=== PATIENT | female | born 1980 | race Caucasian/White ===

== ENCOUNTER 2020-02-13 12:34 | Outpatient (REF) | payer BC, SELFPAY | END 2020-02-13 12:35 | disposition home or self-care (01) | LOC: HO.LAB 12:34 | PROVIDERS: PCP Internal Medicine; Visit Provider Internal Medicine | DX: Z20.828 Contact with and (suspected) exposure to other viral communicable diseases (principal) | CPT/HCPCS: C9803; U0003 ==

== ENCOUNTER 2021-06-25 11:24 | Emergency (ER) | payer BC, SELFPAY ==
[2021-06-25 11:28] VITALS: BP 147/99; PULSE 93; RESP 18; TEMP 36.6; O2SAT 98; BMI 46.3
[2021-06-25 11:58] LABS: IDNOW Serial# 16C4AD1C; Influenza A Negative (Negative); Influenza B2 Negative (Negative)
[2021-06-25 11:59] LABS: COVID-19 Test Negative (Negative)
== END 2021-06-26 05:00 | disposition left against medical advice (07) ==
PROVIDERS: Emergency Provider Emergency Medicine
DX: R06.00 Dyspnea, unspecified (principal); R42 Dizziness and giddiness; R07.9 Chest pain, unspecified; Z20.822 Contact with and (suspected) exposure to COVID-19
CPT/HCPCS: 87502; 87635; 99283

== ENCOUNTER 2022-01-20 14:49 | Emergency (ER) | payer BC, OTHER, SELFPAY ==
--- NOTE | ~2022-01-20 | XR_ITS ---
EXAMINATION: XR CHEST CLINICAL INFORMATION: Cough, difficulty breathing. COMPARISON: Chest radiograph dated 05/15/2021 TECHNIQUE: 2 views of the chest were obtained. FINDINGS: No significant abnormality is noted involving the heart, lungs, mediastinum, bony thorax or soft tissues. XR/XR chest 2V IMPRESSION: No acute cardiopulmonary process.
[2022-01-20 15:22] VITALS: BP 109/52; PULSE 86; RESP 20; TEMP 36.6; O2SAT 98; BMI 42.9
--- NOTE | 2022-01-20 15:23 | ED.URI ---
HPI - URI/Sore Throat General Chief Complaint: Upper Respiratory Symptoms <Judith Gray NP - Last Filed: 01/20/22 15:25> Stated Complaint: COVID+/Difficult breathing <Judith Gray NP - Last Filed: 01/20/22 15:25> Time Seen by Provider: 01/20/22 17:17 <Judith Gray NP - Last Filed: 01/20/22 15:25> Source: patient <ANAT Reyes - Last Filed: 01/20/22 17:33> Mode of arrival: ambulatory <ANAT Reyes Last Filed: 01/20/22 17:33> Limitations: no limitations <ANAT Reyes Last Filed: 01/20/22 17:33> History of Present Illness HPI Narrative: 41-year-old female with a past medical history of fibromyalgia, diabetes and asthma who is presenting to the ER with complaints of URI complaints since yesterday which include fevers up to 103.0, chills, fatigue, malaise, intermittent headaches, nasal congestion/ rhinorrhea, sore throat with a cough. She denies any dizziness, neck pain/ stiffness, trouble swallowing or breathing, chest pain, shortness of breath, dyspnea on exertion, orthopnea, palpitations, paresthesias, nausea/ vomiting / diarrhea constipation, black or bloody stools, abdominal pain, flank pain, dysuria, hematuria, abnormal vaginal discharge, lower extremity edema or calf tenderness, recent travel or sick contacts, rashes or any other symptoms complaints or concerns at this time. <ANAT Reyes - Last Filed: 01/20/22 17:33> MD elicited complaint: fever, cough, sore throat, rhinorrhea and nasal congestion <ANAT Reyes Last Filed: 01/20/22 17:33> Onset (ago): day(s) (2) <ANAT Reyes Last Filed: 01/20/22 17:33> Consistency: constant and progressively worsening <ANAT Reyes Last Filed: 01/20/22 17:33> Severity: moderate <ANAT Reyes Last Filed: 01/20/22 17:33> Description of mucous: clear, watery and yellow <ANAT Reyes - Last Filed: 01/20/22 17:33> Able to tolerate fluids by mouth: Yes <ANAT Reyes - Last Filed: 01/20/22 17:33> Exacerbating factors: nothing <ANAT Reyes - Last Filed: 01/20/22 17:33> Relieving factors: nothing <ANAT Reyes - Last Filed: 01/20/22 17:33> Associated symptoms: fever, chills, voice changes, myalgias, headache, rhinorrhea, nasal congestion, sore throat and cough <ANAT Reyes - Last Filed: 01/20/22 17:33> Treatments prior to arrival: none <ANAT Reyes - Last Filed: 01/20/22 17:33> Related Data Home Medications: Home Medications Medication Instructions Recorded Confirmed ascorbate calcium (vitamin C) 500 500 mg PO DAILY 02/02/ mg tablet Previous Rx's Medication Instructions Recorded albuterol sulfate 0.63 mg/3 mL 0.63 mg (3 mL) inhalation QID PRN 01/20/22 solution for nebulization shortness of breath or wheezing #75 mL codeine 10 mg-guaifenesin 100 mg/5 5 ml PO Q6H PRN cold symptoms #120 01/20/22 mL oral liquid (Guaifenesin AC) mL nirmatrelvir 300 mg (150 mg See Rx Instructions PO .COMPLEX 01/20/22 x2)-ritonavir 100 mg tablet,dose #15 ea pack(EUA) (Paxlovid) prednisone 20 mg tablet 40 mg PO DAILY inflammation 5 days 01/20/22 #10 tabs <Judith Gray NP - Last Filed: 01/20/22 15:25> Allergies/Adverse Reactions: Allergies Allergy/AdvReac Type Severity Reaction Status Date / Time aspirin [Aspirin] Allergy Mild UNKNOWN Unverified 03/10/21 09:23 Iodinated Contrast Media Allergy Mild UNKNOWN Unverified 03/10/21 09:23 [IV Dye, Iodine Containing] penicillin G [Penicillin G] Allergy Unknown UNKNOWN Unverified 03/10/21 09:23 penicillin V Allergy Unknown unknown - Verified 03/10/21 09:23 childhood Shellfish Allergy Mild UNKNOWN Uncoded 03/10/21 09:23 contrast dye Allergy Unknown Uncoded 03/10/21 09:23 penicillin Allergy Unknown Uncoded 03/10/21 09:23 shellfish Allergy Unknown Uncoded 03/10/21 09:23 <Judith Gray NP - Last Filed: 01/20/22 15:25> Review of Systems Review of Systems: Constitutional : + Fevers/ chills/fatigue/malaise, No Weight loss, No Night Sweats ENT/Mouth : + nasal congestion/ rhinorrhea/sore throat, No Hearing loss, No Ear Pain, No Sinus Pain, No Hoarseness,No Swallowing Difficulty Eyes: No Eye Pain, No Swelling, No Redness, No Foreign Body, No Discharge, No Vision Changes Cardiovascular : No Chest Pain, No SOB, No Dyspnea on Exertion, No Orthopnea, No Edema, No Palpitations Respiratory : + Cough, + Sputum, + Wheezing, No Smoke Exposure, No Dyspnea Gastrointestinal : No Nausea, No Vomiting, No Diarrhea, No Constipation, No abdominal Pain, No Hematochezia, No Melena Genitourinary : no irregular bleeding, No Dysuria, No Urinary Frequency, No Hematuria, No Urinary Incontinence, No Urgency, No Flank Pain, No Urinary Flow Changes, No Hesitancy Musculoskeletal : No joint pain, + Myalgias, No Joint Swelling Skin : No Skin Lesions, No rash Neuro : No Weakness, No Numbness, No Paresthesias, No Loss of Consciousness, No Dizziness, + Headache Psych : No Anxiety/Panic, No Depression, No SI/HI/AH/VH, No Social Issues, Heme/Lymph: No Bruising, No Bleeding,No Lymphadenopathy Endocrine : No Polyuria, No Polydipsia, No Temperature Intolerance <ANAT Reyes - Last Filed: 01/20/22 17:33> Yes all other systems are reviewed and are negative <ANAT Reyes - Last Filed: 01/20/22 17:33> PMF Past Medical History Attestation statement: The following information was validated with the patient. <ANAT Reyes - Last Filed: 01/20/22 17:33> Source: old records reviewed and nursing notes reviewed <ANAT Reyes - Last Filed: 01/20/22 17:33> Surgical History: Surgical History History of bariatric surgery History of section History of tonsillectomy <Judith Gray NP - Last Filed: 01/20/22 15:25> Family History Family History: Family History Father Asthma Mother Depression Dementia Brother No problems noted. Brother No problems noted. Sister No problems noted. Son No problems noted. Son No problems noted. Daughter No problems noted. <Judith Gray NP - Last Filed: 01/20/22 15:25> Social History Social History: Social History Advance Directives: No Advance Directives Information Provided: No <Judith Gray NP - Last Filed: 01/20/22 15:25> Physical Exam Vital Signs: Vital Signs: Last Vital Signs Temp 97.9 F 01/20/22 15:22 Pulse 86 01/20/22 15:22 Resp 20 01/20/22 15:22 BP 109/52 L 01/20/22 15:22 Pulse Ox 98 01/20/22 15:22 O2 Del Method 01/20/22 15:22 BMI result Body Mass Index 42.9 <Judith Gray NP - Last Filed: 01/20/22 15:25> Vital Signs: Last Vital Signs Temp 97.9 F 01/20/22 15:22 Pulse 86 01/20/22 15:22 Resp 20 01/20/22 15:22 BP 109/52 L 01/20/22 15:22 Pulse Ox 98 01/20/22 15:22 O2 Del Method 01/20/22 15:22 BMI result Body Mass Index 42.9 Vital signs reviewed. Blood pressure normal. Pulse normal. Respiration normal. Oxygen normal. Temperature normal. <ANAT Reyes - Last Filed: 01/20/22 17:33> Appearance: Alert. Oriented X3. No acute distress. Head: Normal external exam. Normocephalic. Atraumatic. Eyes: PERRLA. EOMI. Conjunctiva and sclera normal. Eyelids normal. ENT: EAC normal. TM's Normal. Pharynx normal. Uvula midline. Moist mucous membranes. No lesions/ulcerations or masses noted on the tongue. Normal voice. No trismus noted. No drooling noted. No muffled voice noted. Neck: Normal inspection. Neck supple. FROM. No adenopathy. Thyroid Normal. No meningeal signs. CVS: Normal heart rate and rhythm. Heart sound normal. Pulses normal throughout. No murmurs/rales/gallops. Respiratory: No respiratory distress. Painless inspiration. Breath sounds normal. No wheezes/rales/rhonchi noted. Chest nontender. No accessory muscle usage noted or decreased air movement noted. Abdomen: Soft and nontender. Back: Full range of motion noted. Nontender. Skin: Skin warm and dry. Normal skin color. Normal skin turgor. No rashes/lesions/lacerations noted. Extremities: Extremities exhibit normal range of motion and nontender. Neuro: Oriented X 3. No motor deficit. No sensory deficit. Reflexes normal. Normal steady gait. No focal neuro deficits noted. CN's II-XII intact bilaterally? Vascular: + radial pulses. Normal cap refill. No cyanosis noted to upper extremity nails <ANAT Reyes - Last Filed: 01/20/22 17:33> Course Course Course Narrative: This is a rapid medical exam. Deferred additional HPI, ROS and PE to primary provider. 41-year-old female with history of fibromyalgia, diabetes, asthma here with complaints of difficulty breathing, cough, nasal congestion, chills. Unvaccinated for COVID. Covid test was positive yesterday. VS Stable. Will check chest x-ray, COVID screen. <Judith Gray NP - Last Filed: 01/20/22 15:25> Reevaluation(s) Reevaluation #1: labs obtained in all labs within normal limits. Patient positive for COVID. Chest x-ray negative for any acute processes. Therefore at this time will DC home with instructions to self isolate per CDC guidelines along with Paxlovid antiviral and symptomatic treatment for her asthma instructions return if any new or worsening symptoms to follow up with primary care provider. Patient understands agrees with this plan. <ANAT Reyes - Last Filed: 01/20/22 17:33> Time: 17:32 <ANAT Reyes - Last Filed: 01/20/22 17:33> Medical Decision Making Medical Decision Making Lab Attestation: I reviewed the patient's lab results. <ANAT Reyes - Last Filed: 01/20/22 17:33> Discharge Plan Discharge Clinical Impression: COVID-19 <Judith Gray NP - Last Filed: 01/20/22 15:25> Patient Disposition: Home, Self-Care <Judith Gray NP - Last Filed: 01/20/22 15:25> Instructions: COVID-19 (Coronavirus Disease 2019) (ED) <Judith Gray NP - Last Filed: 01/20/22 15:25> Prescriptions: New Paxlovid (EUA) 300 mg (150 mg x 2)-100 mg tablets,dose pack See Rx Instructions PO .COMPLEX Qty: 15 0RF Rx Instructions: take TWO 150 mg tablets of nirmatrelvir with ONE 100 mg tablet of ritonavir twice daily for 5 days. Dip 15 pills prednisone 20 mg tablet 40 mg PO DAILY 5 Days Qty: 10 0RF codeine-guaifenesin [Guaifenesin AC] 10-100 mg/5 mL liquid 5 ml PO Q6H PRN (Reason: cold symptoms) Qty: 120 0RF albuterol sulfate 0.63 mg/3 mL solution for nebulization 0.63 mg inhalation QID PRN (Reason: shortness of breath or wheezing) Qty: 75 0RF No Action ascorbate calcium (vitamin C) 500 mg tablet 500 mg PO DAILY <Judith Gray NP - Last Filed: 01/20/22 15:25> Referrals: Darline Cazares MD [Primary Care Provider] - 5 days <Judith Gray NP - Last Filed: 01/20/22 15:25> Stand Alone Forms: Work/School Release <Judith Gray NP - Last Filed: 01/20/22 15:25>
[2022-01-20 16:37] LABS: MANUAL DIFF FLAG NO
[2022-01-20 16:39] LABS: Basophils Percent Auto 0.4 % (0-2); Eosinophils Absolute Auto 0.2 X10*3/uL (0.0-0.4); Eosinophils Percent Auto 2.8 % (0-4); Hematocrit 36.3 % (37.0-47.0); Hemoglobin 11.3 g/dl (12.0-16.0); Imm Gran Abs Auto 0.02 X10*3/uL (0.00-0.03); Imm Gran Pct Auto 0.3 % (0.0-0.4); Lymphocytes Absolute Auto 1.8 X10*3/uL (1.2-4.9); Lymphocytes Percent Auto 25.4 % (20-40); Mean Corpuscular HGB Conc 31.1 g/dl (31.0-35.0); Mean Corpuscular Hemoglobin 22.2 pg (27.0-33.0); Mean Corpuscular Volume 71.2 fL (80.0-98.0); Mean Platelet Volume 10.3 fL (9.4-12.3); Monocytes Percent Auto 13.8 % (2-11); Neutrophils Percent Auto 57.3 % (45-73); Platelet Count 300 X10*3/uL (160-400); Red Cell Distribution Width 14.5 % (11.0-16.0)
[2022-01-20 16:42] LABS: COVID-19 Test Positive (Negative); IDNOW Serial# 16C4AD1C
[2022-01-20 16:45] LABS: INTERNATIONAL NORM RATIO 1.1 (0.9-1.1); Prothrombin Time 12.1 SEC (10.0-13.1)
[2022-01-20 17:00] LABS: Alanine Aminotransferase 12 U/L (0-31); Albumin Level 3.8 g/dL (3.5-5.0); Alkaline Phosphatase 62 U/L (39-117); Anion Gap 9 (12-20); Aspartate Amino Transferase 11 U/L (5-31); Bilirubin Direct < 0.2 mg/dL (0.0-0.5); Bilirubin Total 0.4 mg/dL (0.0-1.0); Blood Urea Nitrogen 15 mg/dL (9-16); Calcium 8.8 mg/dL (8.4-10.2); Carbon Dioxide 29 mmol/L (22-29); Chloride 106 mmol/L (96-108); Creatinine Clr Calc Pharmacy 115.6; Estimated Glomerular Filt Rate > 60; Glucose Random 111 mg/dL (60-115); Potassium 3.9 mmol/L (3.3-5.1); Sodium 140 mmol/L (135-145); Total Protein 6.6 g/dL (6.5-8.0)
== END 2022-01-20 17:39 | disposition home or self-care (01) ==
PROVIDERS: Nurse Practitioner Family; Emergency Provider Emergency Medicine Emergency Medical Services; PCP Internal Medicine
DX: U07.1 COVID-19 (principal); R06.02 Shortness of breath; Z79.899 Other long term (current) drug therapy
CPT/HCPCS: 71046; 80048; 80076; 85025; 85610; 87635; 99282; 99283

== ENCOUNTER 2022-10-11 09:23 | Outpatient (AMB) | payer BC, OTHER, SELFPAY ==
--- NOTE | 2022-10-11 09:34 | A.OFFVIS_ITS ---
Intake Vital Signs 10/11/22 09:35 Height 5 ft 4 in Weight 220 lb 14.451 oz BMI 37.9 BP 102/62 Blood Pressure Location Lt brachial Position Sitting Pulse 63 Pulse Source Pulse Oximeter Temp 97.2 F Temp Source Skin Pulse Oximetry (%) 99 Oxygen Delivery Method Room Air Intake Visit Reasons: FM Intake Note: New patient here for fibromyalgia. 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 Accompanied by: Self / Same As Patient Allergies aspirin [Aspirin] Allergy (Mild, Unverified 10/11/22 09:34) UNKNOWN Iodinated Contrast Media [IV Dye, Iodine Containing] Allergy (Mild, Unverified 10/11/22 09:34) UNKNOWN penicillin G [Penicillin G] Allergy (Unknown, Unverified 10/11/22 09:34) UNKNOWN penicillin V Allergy (Unknown, Verified 10/11/22 09:34) unknown - childhood shellfish derived Allergy (Verified 10/11/22 09:34) Unknown Medication List - Last Reconciled 10/11/22 by Pedro Luis Saenz MD albuterol sulfate 0.63 mg (3 mL) inhalation QID PRN albuterol sulfate 90 mcg/actuation (Ventolin HFA) 2 puffs inhalation Q4H PRN ascorbate calcium (vitamin C) 500 mg PO DAILY budesonide-formoterol 160-4.5 mcg/actuation (Symbicort) inhalation cholecalciferol (vitamin D3) 1,250 mcg PO QWEEK clonazepam 1 mg PO TID PRN colestipol 2 grams PO BID escitalopram oxalate 20 mg PO DAILY gabapentin 100 mg PO BEDTIME PRN methocarbamol 750 mg PO BEDTIME PRN methylphenidate HCl 10 mg PO DAILY PRN methylphenidate HCl ER 36 mg PO QAM PRN semaglutide (Ozempic) mg subcut simethicone 80 mg PO Q6H PRN HPI HPI Comments History of Present Illness Details The patient presents for evaluation of her fibromyalgia and positive RACHELL. She had been seen at [facility] by Mr. Urias. She had a known positive RACHELL without any other positive serologies. At one point he did try a brief course of prednisone for a flare-up of symptoms but she does not think it helped much. She also has anxiety and depression. She has significant social stressors at home caring for two 6-year-old twins, a 10-year-old, a mother with dementia and her recently diagnosed with bladder cancer. Patient says she does have trouble sleeping at night. She feels tired most of the day. Areas of pain include muscles, bones and joints. Prominent among these or her back, shoulders, and knees. She did have a gastric bypass and has been losing weight with continuation of Ozempic for her diabetes. [facility] Medical History (Updated 10/11/22 @ 13:02 by Pedro Luis Saenz MD) RACHELL positive Anxiety Attention-deficit hyperactivity disorder, unspecified type Class 2 obesity due to excess calories in adult COVID-19 Depression Elevated TSH Fibromyalgia Hyperlipidemia, unspecified Polycystic ovarian syndrome Snoring Type 2 diabetes mellitus Unspecified asthma, uncomplicated Vitamin D deficiency, unspecified Surgical History (Updated 10/11/22 @ 09:38 by ROBBY Rodriguez) History of bariatric surgery History of section History of tonsillectomy Hx of cholecystectomy Hx of gastric bypass Family History (Updated 10/11/22 @ 09:39 by ROBBY Rodriguez) Father Asthma Mother Depression Alzheimer disease, Onset Age: 63 Rheumatoid arthritis Brother Diabetes Hypothyroidism, unspecified Rheumatoid arthritis Family/Other Diabetes Maternal Grandfather Cancer of lung Dementia Sister Depression Anxiety Social History (Updated 10/11/22 @ 09:40 by ROBBY Rodriguez) Household Members: Spouse, Family and Children Alcohol intake: never Patient Tobacco Use Status: Never used Tobacco Current occupational status: employed 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 Has difficulty falling asleep and staying asleep. She continues keep her lost weight from returning. Negative for appetite change, weight change, fever, chills, malaise Eyes Details: Itchy eyes, occasional headache. Negative for vision change, dry eyes and dizziness ENT Details: Negative for hearing change, tinnitus, oral ulcer, nose bleeds and oral dryness. Card Details: Negative chest pain, edema and syncope Resp Details: History of asthma but symptoms well controlled currently. Negative for SOB, cough and wheezing GI Details: Negative indigestion/heartburn, nausea, abdominal pain, bowel changes, diarrhea, constipation and bloody stool. Details: History of 1 early miscarriage. Negative for dysuria, hematuria, nocturia, decreased force/flow and genital discharge Skin/Breast Details: Sometimes fingers look iris to cold. She has had rashes in the intertriginous areas.Negative for itching, rash, hives, sun sensitivity, and skin cancer Neuro Details: Negative for epilepsy, palsy, stroke, changes in speech, tingling and weakness Psych Details: Anxious about her 's illness. Endo Details: Negative for polyuria and polydypsia Carmelo/Lymph Details: Negative for excessive bruising or bleeding. Physical Exam Vital Signs: Last Vital Signs Temp 97.2 F 10/11/22 09:35 Pulse 63 10/11/22 09:35 BP 102/62 10/11/22 09:35 Pulse Ox 99 10/11/22 09:35 Oxygen Delivery Method Room Air 10/11/22 09:35 BMI result Body Mass Index 37.9 APPEARANCE: Patient in no acute distress EYES no redness, pupils equal and reactive to light, eyelids normal EARS: External ear normal, canal clear and tympanic membrane normal. NOSE/SINUS: Airflow through both nares, no nasal discharge, no bleeding THROAT: Oral mucosa moist, no ulcerations NECK: No thyromegaly or masses, no adenopathy, trachea midline. HEART: Regulrar rhythm, S1-S2 heard, no murmurs, rubs or gallops. LUNG: Clear to percussion and auscultation ABD: Normal bowel sounds, no organomegaly, masses or tenderness. EXTREMITIES: No edema, no calf tenderness, normal peripheral pulses. NEURO: Oriented and alert x3. No focal weakness. Reflexes symmetric. Gait normal. SKIN: No inflammatory or neoplastic lesions. Normal color and turgor JOINT EXAM:?? Cervical Spine:.? Mild pain with extremes of normal range of motion with some cervical muscle tenderness. Thoracic Spine:.? No scoliosis.? No tenderness on palpation. Lumbar Spine:? Alignment normal.? Lumbar pain with flexion beyond 60 degrees or with attempts at hyperextension. Some paraspinal muscle tenderness. Chest Wall:? No tenderness, swelling, increased warmth or erythema. Hands:.? Normal pain-free range of motion with slight tenderness across the PIP joints but none of these look to be swollen. Otherwise no areas of tenderness, swelling, increased warmth or erythema. Able to make a full fist and has a good weights and measures sealer strength. Wrists:.? Normal pain-free range of motion with mild dorsal tenderness but no swelling, increased warmth or erythema. Elbows:. Normal pain-free range of motion without tenderness, swelling, increased warmth or erythema. Shoulders:.?? Full range of motion with mild pain at the extremes of normal range of motion. There is trapezius and subacromial tenderness. No adenopathy, weakness, swelling, increased warmth or erythema. Hips:.? Full range of motion with some lumbar pain at the extremes of normal external rotation. No groin pain with motion. Hip bursa:.? No tenderness. Knees:.?? Normal pain-free range of motion with some slight medial compartment tenderness. No crepitus, effusion,swelling, increased warmth or erythema.? Ankles:? Normal pain-free range of motion without tenderness, swelling, increased warmth or erythema. Feet:? Normal pain-free range of motion with some instep and MTP tenderness. No swelling, increased warmth or erythema. Tender points:? Mild tenderness to digital palpation at the trapezius, second rib, lateral epicondyle, knees, greater trochanter bilaterally. Results Reviewed Results Reviewed: 2021 lab work from [place]: Hemoglobin 11.9, white count 7.9, platelet count 394,000, ESR 40, creatinine 0.79, TSH 2.15, RACHELL positive 640 with a speckled pattern, rheumatoid factor negative 2020 lab work: Urine microalbumin negative, Sjogren's antibodies negative, anti KIKI negative, beta 2 glycoprotein antibody negative, anti DNA negative, C3 and C4 normal, cardiolipin screen negative Assessment & Plan Assessment & Plan (1) RACHELL positive: Code(s): R76.8 - Other specified abnormal immunological findings in serum (2) Depression: Code(s): F32.A - Depression, unspecified (3) Fibromyalgia: Code(s): M79.7 - Fibromyalgia Plan She has a positive RACHELL in the past but once again does not seem to have any signs or symptoms to suggest an active inflammatory condition. There are many tender points so this looks mostly like fibromyalgia. Symptoms are exacerbated by recent struggles at home with the recent diagnosis of bladder cancer in her and her multiple other family responsibilities. I gave her some written information on fibromyalgia to review. She is already on an antidepressant, gabapentin, and methocarbamol. I encouraged her to continue follow-up with Behavioral Health to maximize her functioning and minimize her anxiety and depression. As far as pain control for the fibromyalgia she is on a relatively low dose of gabapentin at night. This could be pushed higher and also she could try a daytime dose if tolerated. The gabapentin is prescribed by the psychiatrist currently. I will send her a note on her my thoughts about the gabapentin. A follow-up with us in 6 months would be reasonable. Coding Level of Care Code Est Pt Level 4 (20819) Diagnoses RACHELL positive R76.8 Depression F32.A Fibromyalgia M79.7
[2022-10-11 09:35] VITALS: BP 102/62; PULSE 63; TEMP 36.2; O2SAT 99; BMI 37.9
== END 2022-10-11 10:35 | disposition home or self-care (01) ==
PROVIDERS: PCP Internal Medicine; Visit Provider Internal Medicine Rheumatology
DX: R76.8 Other specified abnormal immunological findings in serum (principal); F32.A Depression, unspecified; M79.7 Fibromyalgia
CPT/HCPCS: 99214

== ENCOUNTER → 2022-10-11 09:23 | Outpatient (BNVA) | payer BC, OTHER, SELFPAY | PROVIDERS: PCP Internal Medicine; Visit Provider Internal Medicine Rheumatology ==